=== PATIENT | female | born 1935 | race Caucasian/White ===

== ENCOUNTER 2020-01-30 10:31 | Day surgery (SDC) | payer MEDICARE ==
[~2020-01-30] VITALS: Ht 154.9 cm; Wt 46.8 kg
[2020-01-30] VITALS (8 sets, daily range): BP systolic 105–132; BP diastolic 43–57
[~2020-01-30 10:31] MED LIST: ACYC200C PO; FURO-149 PO; SPIR50TA5 PO; [UNRECOGNIZED DRUG - CODE] SQ
[2020-01-30] MEDS ORDERED: normal saline 1,000 ML IV SCH (10:50)
[2020-01-30] MEDS ORDERED: diphenhydrAMINE 25mg capsule PO PRN (10:50)
[2020-01-30] MEDS ORDERED: CALC300T4 PO (11:10)
[2020-01-30] MEDS ORDERED: LOVA40TA2 PO (11:10)
[2020-01-30] MEDS ORDERED: NAPR-56 PO (11:10)
[2020-01-30] MEDS ORDERED: CYAN250010 PO (11:10)
[2020-01-30] MEDS ORDERED: SYN0.088T PO (11:10)
[2020-01-30] MEDS ORDERED: MULT-1085 PO (11:10)
[2020-01-30 11:42] LABS: BASOPHILS % (AUTO) 0.6 % (0-1); EOSINOPHILS % (AUTO) 0.4 % (0-6); HEMOGLOBIN 12.8 g/dl (12.0-16.0); LYMPHOCYTES # (AUTO) 0.7 X10'3 (1.1-4.8); MEAN CORPUSCULAR HEMOGLOBIN 32.2 PG (27.0-31.0); MEAN CORPUSCULAR HGB CONC 33.8 g/dL (33.0-36.5); MEAN CORPUSCULAR VOLUME 95.5 FL (78-98); MEAN PLATELET VOLUME 9.6 FL (7.4-10.4); MONOCYTES # (AUTO) 0.4 X10'3 (0-0.9); MONOCYTES % (AUTO) 7.2 % (2-12); NEUTROPHILS # (AUTO) 4.9 X10'3 (1.8-7.7); NEUTROPHILS % (AUTO) 79.8 % (42-75); PLATELET COUNT 167 X10'3 (140-440); RED BLOOD COUNT 3.98 X10'6 (4.20-5.60); RED CELL DISTRIBUTION WIDTH 12.8 % (11.5-14.5); WHITE BLOOD COUNT 6.2 X10'3 (4.5-11.0)
[2020-01-30 11:44] LABS: ALBUMIN 3.5 G/DL (3.4-5.0); ANION GAP 10 (8-16); BLOOD UREA NITROGEN 19 MG/DL (7-18); BUN/CREATININE RATIO 27.1 (6.6-38.0); CALCIUM 8.7 MG/DL (8.5-10.1); CHLORIDE 108 MMOL/L (99-107); GLUCOSE 112 MG/DL (70-104); POTASSIUM 4.3 MMOL/L (3.5-5.1); SODIUM 145 MMOL/L (135-145); TOTAL CARBON DIOXIDE 27.2 MMOL/L (24-32); eGFR 79 ML/MIN
[2020-01-30] MEDS ORDERED: midazolam 2 mg/2 ml injection ONE (12:26)
[2020-01-30] MEDS ORDERED: LIDOcaine 1% (10mg/ml)w/preservative injection 20ml MDV ONE (12:27)
[2020-01-30] MEDS ORDERED: iohexol 350 MG/ML 50ML vial IV ONE (12:27)
[2020-01-30] MEDS ORDERED: heparin 1,000unit/ml 10ml vial 10 ML ONE (12:27)
[2020-01-30] MEDS ORDERED: fentaNYL/PF 50MCG/1 ML 2ML syringe ONE (12:27)
[2020-01-30] MEDS ORDERED: iohexol 350MG/ML 100ml bottle IV ONE (12:27)
== END 2020-01-30 17:00 | disposition home or self-care (01) ==
LOC: SSTAY O 10:31
PROVIDERS: ATTEND Internal Medicine Cardiovascular Disease
DX: R94.39 Abnormal result of other cardiovascular function study (principal); I35.0 Nonrheumatic aortic (valve) stenosis; I10 Essential (primary) hypertension; E03.9 Hypothyroidism, unspecified; E78.00 Pure hypercholesterolemia, unspecified; Z79.899 Other long term (current) drug therapy; Z85.828 Personal history of other malignant neoplasm of skin; Z96.649 Presence of unspecified artificial hip joint; Z98.890 Other specified postprocedural states
CPT/HCPCS: 36415; 80048; 83735; 85025; 85610; 93005; 93454; 99152; A6258; C1769; C1894; J1644; J2001; J2250; J3010; J7030; Q0163; Q9967; A4620; C1760